=== PATIENT | female | born 1955 | race Caucasian/White ===

== ENCOUNTER → 2018-12-26 | Outpatient (CLI) | payer OTHER, MEDICARE ==
[~2018-12-26] MED LIST: ADV100/50 INH; AZIT500T47 PO; CET10 PO; FLUT16SP20 NS; GLUC500T13 PO; IBUP50TA PO; LOR10 PO; LOR5 PO; [UNRECOGNIZED DRUG - CODE] INH; [UNRECOGNIZED DRUG - CODE] PO
--- NOTE | 2018-12-30 12:52 | RADIOLOGY IMAGING REPORT ---
FAC[place] [facility] [place] NAME: SWAPNIL ODONNELL : [id number] MR: [id number] V: [id number] EXAM DATE: [id number] ORDERING PHYSICIAN: PARI URBINA TECHNOLOGIST: Ann Garcia PROCEDURE:BILATERAL DIGITAL SCREENING MAMMOGRAM WITH CAD ASSISTED INTERPRETATION & 3D TOMOSYNTHESIS COMPARISON:[facility]. INDICATIONS:Screening FINDINGS: Scattered fibroglandular densities are present in both breasts. Portions of the breasts are obscured by implants bilaterally. The implant shells are mildly wrinkled bilaterally. No masses or suspicious calcifications. DIAGNOSTIC CATEGORY 1--NEGATIVE. RECOMMENDATIONS: ROUTINE MAMMOGRAM AND CLINICAL EVALUATION IN 1 YR. IMPRESSION: BIRADS 1: Negative. Dictated by: Ld Mahan M.D. on 12/26/2018 at 17:10 Transcribed by: FERNANDO on 12/29/2018 at 10:15 Approved by: Paulo Goldstein M.D. on 12/30/2018 at 12:51 [facility]
== END ==
LOC: MAMO 01:08
PROVIDERS: ATTEND Nurse Practitioner Family
DX: Z12.31 Encounter for screening mammogram for malignant neoplasm of breast (principal); Z98.82 Breast implant status
CPT/HCPCS: 77063; 77067